=== PATIENT | male | born 1975 | race Caucasian/White ===

== ENCOUNTER → 2022-12-07 | Outpatient (CLI) | payer OTHER ==
[2022-12-07 14:48] LABS: HCT 43.5 % (39.6-50.0); HGB 14.4 g/dL (13.0-17.0); MCH 28.6 pg (27.0-32.0); MCHC 33.1 g/dL (32.0-37.0); MCV 86.3 fL (80.0-97.0); Mean Platelet Volume 9.2 fL (9.5-12.2); NRBC Per 100 WBC 0 /100 WBCS (0.0-0.0); Platelet Count 189 X 10*3/uL (140-440); RBC 5.04 X 10*6/uL (4.40-5.60); WBC 4.98 X 10*3/uL (4.50-10.00)
[2022-12-07 15:14] LABS: ALT 18 U/L (10-49); AST 22 U/L (14-35); African American GFR (CKD) 104.9 (60.0-200.0); Albumin 4.5 g/dL (3.8-4.9); Albumin/Globulin Ratio 1.18 (1.60-3.17); Alkaline Phosphatase 65 U/L (41-126); Blood Urea Nitrogen 17.9 mg/dL (9.0-27.0); Calcium 9.6 mg/dL (8.7-10.3); Carbon Dioxide 22.7 mmol/L (20.0-27.5); Chloride 103 mmol/L (96-109); Chol/HDL Ratio 4.16 Ratio; Globulin 3.8 g/dL (1.6-3.3); Glucose 87 mg/dL (70-110); LDL Cholesterol,Calculated 84.4 mg/dL (0.0-131.0); Non-African American GFR(CKD) 90.5 (60.0-200.0); Potassium 4.5 mmol/L (3.5-5.5); Sodium 140 mmol/L (135-145); Total Protein 8.3 g/dL (6.2-8.2)
[2022-12-07 18:11] LABS: C-Peptide 3.79 ng/mL (0.81-3.85)
== END | disposition home or self-care (01) ==
LOC: LABWHC1 10:03
PROVIDERS: ATTEND Family Medicine
DX: I10 Essential (primary) hypertension (principal); E10.9 Type 1 diabetes mellitus without complications; E03.9 Hypothyroidism, unspecified
CPT/HCPCS: 36415; 80053; 80061; 83036; 84443; 84681; 85027

== ENCOUNTER → 2023-06-16 | Outpatient (CLI) | payer OTHER ==
--- NOTE | 2023-06-16 11:00 | XR ---
EXAMINATION TYPE: XR wrist complete RT DATE OF EXAM: 06/16/2023 COMPARISON: None HISTORY: Pain lateral wrist TECHNIQUE: 4 view right wrist FINDINGS: No acute fracture or dislocation is evident. Joint spaces are preserved. Soft tissues appea r normal. There is pain at the anatomic [employer] nuclear medicine bone scan could be performed for additional e valuation. MRI can be performed if soft tissue evaluation would be of benefit. IMPRESSION: 1. No acute or subacute osseous abnormality right wrist
== END | disposition home or self-care (01) ==
LOC: RADXRMAIN 10:38
PROVIDERS: ATTEND Family Medicine
DX: Z00.00 Encounter for general adult medical examination without abnormal findings (principal)